=== PATIENT | male | born 1965 | race American Indian/Alaskan Native ===

== ENCOUNTER 2017-03-07 11:51 | Inpatient (IN) | payer BC ==
[2017-03-07 12:40] LABS: BASO # 0.02 K/mm3 (0.0-2.0); BASO % 0.3 % (0.0-3.0); EOS # 0.2 (0.0-0.7); EOS % 2.1 % (1.5-5.0); GRAN # 4.42 (1.4-6.5); GRAN % 60.4 % (50.0-68.0); HEMATOCRIT 33.1 % (42.0-52.0); LYMPH # 2.1 (1.2-3.4); LYMPH % 29.1 % (22.0-35.0); MEAN CELL VOLUME 78.4 fl (80.0-105.0); MEAN CORPUSCULAR HGB CONC 35.6 g/dl (31.0-37.0); MEAN PLATELET VOLUME 10.1 fl (7.0-11.0); MONO # 0.6 (0.1-0.6); MONO % 8.1 % (1.0-6.0); RED CELL DISTRIBUTION WIDTH 14.6 % (11.5-14.5); WHITE BLOOD COUNT 7.3 10^3/ul (4.5-11.0)
[2017-03-07 12:48] LABS: ALB/GLOB RATIO 1.1 (1.1-1.8); BILIRUBIN,TOTAL 0.7 mg/dL (0.2-1.3); CALCIUM 9.6 mg/dL (8.4-10.5); TOTAL PROTEIN 7.9 g/dL (5.8-8.3)
[2017-03-07 12:50] LABS: POTASSIUM 2.8 mmol/L (3.6-5.0)
[2017-03-07] MEDS ORDERED: Potassium Chloride 20 mEq ER Tab PO STA (12:57)
[2017-03-07 12:58] LABS: INR 0.99 (0.93-1.08); PARTIAL THROMBOPLASTIN TIME 38.2 Seconds (25.1-36.5)
[2017-03-07 12:59] LABS: TROPONIN I 0.03 ng/mL
[2017-03-07] MEDS ORDERED: Sodium Chloride 0.9% 1,000 ML IV STA (13:05)
--- NOTE | 2017-03-07 13:23 | ED PDOC ---
Arrival/HPI - General Chief Complaint: Abnormal Labs Time Seen by Provider: 03/07/17 12:07 Historian: Patient - History of Present Illness Narrative History of Present Illness (Text): 03/07/17 13:18 52yo morbidly obese male with PMhx significant for hypertension and Diabetes referred to ED for hypokalemia. Patient states his PMD did blood work yesterday and called him today with the result, referring him to the ED. He however denies chest pain, foal weakness, paresthesia, nausea, vomiting, abdominal pain , any other complaint. Past Medical History - Provider Review Nursing Documentation Reviewed: Yes - Infectious Disease Hx of Infectious Diseases: None - Cardiac Hx Hypertension: Yes - Endocrine/Metabolic Hx Diabetes Mellitus Type 2: Yes - Psychiatric Hx Substance Use: No - Surgical History Hx Orthopedic Surgery: Yes - Anesthesia Hx Anesthesia Reactions: No Family/Social History - Physician Review Nursing Documentation Reviewed: Yes Family/Social History: Unknown Family HX Smoking Status: Unknown If Ever Smoked Hx Alcohol Use: Yes Frequency of alcohol use: Socially Hx Substance Use: No Allergies/Home Meds Allergies/Adverse Reactions: Allergies No Known Allergies Allergy (Verified 03/07/17 15:23) Home Medications: Home Meds Medication Instructions Recorded Confirmed Atorvastatin [Lipitor] 40 mg PO DAILY 03/07/17 03/07/17 Azilsartan Med/Chlorthalidone 1 tab PO DAILY 03/07/17 03/07/17 [Edarbyclor 40 mg-25 mg] Calcitriol [Rocaltrol] 0 mcg PO DAILY 03/07/17 03/07/17 Doxazosin Mesylate 2 mg PO DAILY 03/07/17 03/07/17 Insulin Aspart Prot/Insuln Asp 60 unit SQ AMHS 03/07/17 03/07/17 [Novolog Mix 70-30 Vial] Insulin Aspart/Insulin Aspar 40 units SC ACD 03/07/17 03/07/17 [Novolog Mix 70/30 (70/30 units/ml)] NIFEdipine [Procardia] 60 mg PO BID 03/07/17 03/07/17 Review of Systems - Physician Review All systems were reviewed & negative as marked: Yes - Review of Systems Constitutional: Normal, Other (Hypokalemia) Eyes: Normal ENT: Normal Respiratory: Normal Cardiovascular: Normal Gastrointestinal: Normal Genitourinary Male: Normal Musculoskeletal: Normal Skin: Normal Neurological: Normal Endocrine: Normal Hemo/Lymphatic: Normal Psychiatric: Normal Physical Exam Vital Signs Reviewed: Yes Vital Signs Temp Pulse Resp BP Pulse Ox 03/07/17 14:42 83 19 139/80 95 03/07/17 13:23 84 18 147/84 95 03/07/17 12:02 99 F 98 H 18 131/84 95 Temperature: Afebrile Blood Pressure: Normal Pulse: Regular Respiratory Rate: Normal Appearance: Positive for: Well-Appearing, Non-Toxic, Comfortable, Other ( Morbidly obese) Pain Distress: None Mental Status: Positive for: Alert and Oriented X 3 - Systems Exam Head: Present: Atraumatic, Normocephalic Pupils: Present: PERRL Extroacular Muscles: Present: EOMI Conjunctiva: Present: Normal Mouth: Present: Moist Mucous Membranes Neck: Present: Normal Range of Motion Respiratory/Chest: Present: Clear to Auscultation, Good Air Exchange. No: Respiratory Distress, Accessory Muscle Use Cardiovascular: Present: Regular Rate and Rhythm, Normal S1, S2. No: Murmurs Abdomen: Present: Normal Bowel Sounds. No: Tenderness, Distention, Peritoneal Signs Back: Present: Normal Inspection Upper Extremity: Present: Normal Inspection. No: Cyanosis, Edema Lower Extremity: Present: Normal Inspection. No: Edema Neurological: Present: GCS=15, CN II-XII Intact, Speech Normal Skin: Present: Warm, Dry, Normal Color. No: Rashes Psychiatric: Present: Alert, Oriented x 3, Normal Insight, Normal Concentration Medical Decision Making ED Course and Treatment: 03/07/17 20:20 Pt appeared for stated history. He was comfortable in ED. His repeat lab show potassium of 2.8. His potassium was repeleted in ED. Elevated BUN/Cr was also noted. On discussing the case with Dr. Briceno, he notes knowledge of the elevated BUN/ Cr secondary to old labs. Level CK and LDH was however new. Source unknown at this time. Pt was admitted for rhabdomylosis. Case was DW Dr. lee. Pt admitted to his service. EKG NSR with Prolonged QT at 80bpm - Lab Interpretations Lab Results: 03/07/17 12:30 03/07/17 12:30 Lab Results 03/07/17 12:30: Sodium 143, Potassium 2.8 L*, Chloride 99, Carbon Dioxide 36 H, Anion Gap 11, BUN 45 H, Creatinine 2.4 H, Est GFR ( Amer) 34, Est GFR ( Non-Af Amer) 28, Random Glucose 220 H, Calcium 9.6, Total Bilirubin 0.7, AST 54 , ALT 39, Alkaline Phosphatase 100, Lactate Dehydrogenase 833 H, Total Creatine Kinase 1153 H, CK-MB (CK-2) 7.0 H, CK-MB (CK-2) % 0.6 L, Troponin I 0.03, Total Protein 7.9, Albumin 4.2, Globulin 3.8, Albumin/Globulin Ratio 1.1 03/07/17 12:30: PT 10.9, INR 0.99, APTT 38.2 H 03/07/17 12:30: WBC 7.3, RBC 4.22, Hgb 11.8 L, Hct 33.1 L, MCV 78.4 L, MCH 28.0 , MCHC 35.6, RDW 14.6 H, Plt Count 238, MPV 10.1, Gran % 60.4, Lymph % (Auto) 29.1, [place] % (Auto) 8.1 H, Eos % (Auto) 2.1, Baso % (Auto) 0.3, Gran # 4.42, Lymph # 2.1, [place] # 0.6, Eos # 0.2, Baso # 0.02 - Medication Orders Current Medication Orders: Atorvastatin Calcium (Lipitor) 40 mg PO HS [facility] Insulin Human Regular (Humulin R Med) 0 units SC ACHS [facility] PRN Reason: Protocol Nifedipine (Procardia Xl) 60 mg PO BID [facility] Last Admin: 03/07/17 17:49 Dose: 60 mg [facility] Pulse and Blood Pressure Document 03/07/17 17:49 RV (Rec: 03/07/17 17:49 RV [id number]) Pulse Pulse Rate (60-90) 87 Blood Pressure Blood Pressure (100/60-150/90) 130/71 Discontinued Medications Potassium Chloride (Potassium Chloride 20 Meq/100 Ml) 20 meq in 100 mls @ 50 mls/hr IVPB Q2H STA Stop: 03/07/17 14:58 Last Admin: 03/07/17 13:29 Dose: 50 mls/hr eMAR Start Stop Document 03/07/17 13:29 MR (Rec: 03/07/17 13:29 MR [id number]) Intravenous Solution Start Date 03/07/17 Start Time 13:29 End Date 03/07/17 End time 15:29 Total Infusion Time 120 Sodium Chloride (Sodium Chloride 0.9%) 1,000 mls @ 999 mls/hr IV .Q1H1M STA Stop: 03/07/17 14:05 Last Admin: 03/07/17 13:30 Dose: 999 mls/hr eMAR Start Stop Document 03/07/17 13:30 MR (Rec: 03/07/17 13:30 MR [id number]) Intravenous Solution Start Date 03/07/17 Start Time 13:30 End Date 03/07/17 End time 14:30 Total Infusion Time 60 Magnesium Sulfate 2 gm/ Sodium (Chloride) 104 mls @ 102 mls/hr IVPB ONCE ONE Stop: 03/07/17 16:52 Last Admin: 03/07/17 17:48 Dose: 102 mls/hr eMAR Start Stop Document 03/07/17 17:48 RV (Rec: 03/07/17 17:49 RV [id number]) Intravenous Solution Start Date 03/07/17 Start Time 17:49 End Date 03/07/17 End time 18:49 Total Infusion Time 60 Pneumococcal Polyvalent Vaccine (Pneumovax 23 Vaccine) 0.5 ml IM .ONCE ONE Stop: 03/07/17 16:52 Potassium Chloride (K-Dur 20 Meq Er Tab) 40 meq PO STAT STA Stop: 03/07/17 12:58 Last Admin: 03/07/17 13:29 Dose: 40 meq Disposition/Present on Arrival - Present on Arrival Any Indicators Present on Arrival: No History of DVT/PE: No History of Uncontrolled Diabetes: No Urinary Catheter: No History of Decub. Ulcer: No History Surgical Site Infection Following: None - Disposition Have Diagnosis and Disposition been Completed?: Yes Diagnosis: Hypokalemia, Rhabdomyolysis, Renal insufficiency Disposition: HOSPITALIZED Disposition Time: 13:30 Patient Problems: Current Active Problems Problem Status Onset Hypokalemia Acute Renal insufficiency Acute Rhabdomyolysis Acute Condition: FAIR
[2017-03-07] MEDS ORDERED: Magnesium Sulfate 2 GM in Sodium Chloride 0.9% 100 ML IVPB ONE (15:51)
[2017-03-07 16:51] VITALS: BMI 48.7
[2017-03-07] MEDS ORDERED: Pneumococcal 23-Valent Vaccine IM ONE (16:51)
[2017-03-07] MEDS ORDERED: Influenza Vaccine 60 mcg/0.5 mL SYR (4YR UP) IM ONE (16:51)
[2017-03-07] MEDS: Insulin Human NPH/Reg 70/30 Vial(3 ml) SC SCH (17:48)
[2017-03-07] MEDS: NIFEdipine 60 mg ER Tab PO SCH (17:49)
[2017-03-07 18:15] LABS: MAGNESIUM 1.9 mg/dL (1.7-2.2)
[2017-03-07 18:28] LABS: TROPONIN I 0.03 ng/mL
--- NOTE | 2017-03-07 19:08 | US ---
PROCEDURE: Ultrasound of the Kidneys HISTORY: CKD COMPARISON: None available. TECHNIQUE: Sonogram of the kidneys. FINDINGS: RIGHT KIDNEY: Measures: 10.0 cm. Normal in size, contour and echogenicity. No stone, solid mass lesion or hydronephrosis visualized. LEFT KIDNEY: Measures: 11.3 cm. Normal in size, contour and echogenicity. No calculus or hydronephrosis. Upper pole cortical cyst, 2.2 cm. No solid mass. OTHER FINDINGS: None. IMPRESSION: 2.2 cm left upper pole simple cortical cyst. Otherwise unremarkable examination.
[2017-03-07] MEDS: Insulin Reg-MEDIUM-Coverage SC SCH (21:51)
[2017-03-08 02:10] LABS: TROPONIN I 0.02 ng/mL
[2017-03-08 08:23] LABS: HEMATOCRIT 33.5 % (42.0-52.0); MEAN CELL VOLUME 78.8 fl (80.0-105.0); MEAN CORPUSCULAR HEMOGLOBIN 27.3 pg (25.0-35.0); MEAN CORPUSCULAR HGB CONC 34.6 g/dl (31.0-37.0); MEAN PLATELET VOLUME 9.9 fl (7.0-11.0); RED CELL DISTRIBUTION WIDTH 14.7 % (11.5-14.5); WHITE BLOOD COUNT 6.8 10^3/ul (4.5-11.0)
[2017-03-08 08:31] LABS: ALB/GLOB RATIO 1.1 (1.1-1.8); BILIRUBIN,TOTAL 0.7 mg/dL (0.2-1.3); CALCIUM 9.3 mg/dL (8.4-10.5); MAGNESIUM 2.1 mg/dL (1.7-2.2); PHOSPHOROUS 3.6 mg/dL (2.5-4.5); POTASSIUM 3.2 mmol/L (3.6-5.0); TOTAL PROTEIN 7.9 g/dL (5.8-8.3)
[2017-03-08 08:42] LABS: TROPONIN I 0.02 ng/mL
--- NOTE | 2017-03-08 09:08 | CARD ---
APPROVED REPORT EKG Measurement Heart [id number] MA [id number] [id number] <Conclusion> Normal sinus rhythm NSSTW changes Prolonged QT
[2017-03-08] MEDS: NIFEdipine 60 mg ER Tab PO SCH ×2 (09:45→18:17)
[2017-03-08] MEDS: Insulin Reg-MEDIUM-Coverage SC SCH ×4 (09:46→21:32)
[2017-03-08] MEDS: Insulin Human NPH/Reg 70/30 Vial(3 ml) SC SCH (16:20)
[2017-03-08] MEDS: Silver Sulfadiazine 1% Cream (25 gm) TP SCH (18:17)
--- NOTE | 2017-03-08 23:23 | HP ---
HISTORY OF PRESENT ILLNESS: Mr. De Dios is a 52-year-old male who was sent to the hospital by the PMD when on a routine blood work he was found to have a low potassium. He was complaining of extreme fatigue. 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 He sort out mails from the belt. He also has history of leg cramps before. He was found to be hypokalemic, acute renal failure and rhabdomyolysis with elevated CK and elevated creatinine. Denies any nausea or vomiting. He has history of hypertension. Blood pressure controlled with current medication. He also has a history of diabetes mellitus controlled. PAST MEDICAL HISTORY: Diabetes mellitus and hypertension. FAMILY HISTORY: Noncontributory. PAST SURGICAL HISTORY: None. ALLERGIES: NO KNOWN DRUG ALLERGIES. PERSONAL HISTORY: Nonsmoker. No history of alcohol abuse. SOCIAL HISTORY: Lives at home. HOME MEDICATIONS: Lipitor 40 mg daily, chlorthalidone-azilsartan one tablet daily, Rocaltrol , insulin 70/30, 60 units a.m. and at bedtime, nifedipine 10 mg b.i.d. REVIEW OF SYSTEMS: As per HPI. The rest of 12-point review of systems reviewed negative. PHYSICAL EXAMINATION: GENERAL: Comfortable in bed, in no acute distress. VITAL SIGNS: Temperature 98.7, heart rate is 80 per minute, respiratory rate 16 per minute, blood pressure 130/84, pulse ox is 95% on room air. HEENT: Normal. NECK: Supple. No lymphadenopathy. CHEST: Air entry present and equal bilateral. No added sounds. CARDIOVASCULAR: S1 and S2 normal. No murmurs and no gallops. ABDOMEN: Obese, nontender. EXTREMITIES: Bilateral minimal edema present. SKIN: Intact, dry, warm. TRAVEL NURSE: Alert and oriented x3. No focal sensory or motor deficit. LABORATORY DATA: White count 7.3, hemoglobin 11.8, hematocrit 33.1, platelets 231. Sodium 143, potassium 2.8, BUN 45, creatinine 2.4, glucose 220. Creatine kinase 1153, CK-MB 7. PTT 38.2. ASSESSMENT: 1. Rhabdomyolysis. 2. Hypokalemia. 3. Hypertension. 4. Diabetes mellitus type 2. 5. Microcytic anemia. PLAN: He will be admitted to the hospital, IV fluids, normal saline at 100 mL an hour. We will replace potassium 10 mEq riders. Continue regular sliding scale insulin fingerstick q. a.c. and at bedtime, nifedipine 60 mg p.o. b.i.d., Lipitor 40 mg daily, silver sulfadiazine topical application on the leg for skin breakdown. We will repeat the labs CBC, BMP. Iron studies ruled out iron-deficiency anemia. He might have sickle cell trait although no family history of that. Encouraged ambulation. Deborah Earl MD [facility]
[2017-03-09 08:00] LABS: BASO # 0.02 K/mm3 (0.0-2.0); BASO % 0.3 % (0.0-3.0); EOS # 0.1 (0.0-0.7); EOS % 1.7 % (1.5-5.0); GRAN # 4.55 (1.4-6.5); GRAN % 63.5 % (50.0-68.0); LYMPH # 1.8 (1.2-3.4); LYMPH % 25.7 % (22.0-35.0); MEAN CELL VOLUME 78.2 fl (80.0-105.0); MEAN CORPUSCULAR HGB CONC 35.9 g/dl (31.0-37.0); MONO # 0.6 (0.1-0.6); MONO % 8.8 % (1.0-6.0); RED CELL DISTRIBUTION WIDTH 14.6 % (11.5-14.5); WHITE BLOOD COUNT 7.2 10^3/ul (4.5-11.0)
[2017-03-09] MEDS: Insulin Reg-MEDIUM-Coverage SC SCH ×3 (08:05→17:29)
[2017-03-09 08:24] LABS: ALB/GLOB RATIO 1.1 (1.1-1.8); BILIRUBIN,TOTAL 0.7 mg/dL (0.2-1.3); CALCIUM 9.5 mg/dL (8.4-10.5); TOTAL PROTEIN 7.5 g/dL (5.8-8.3)
[2017-03-09 08:30] LABS: IRON 34 ug/dL (45-180)
[2017-03-09] MEDS: NIFEdipine 60 mg ER Tab PO SCH ×3 (08:57→17:33)
--- NOTE | 2017-03-09 09:13 | CP.PCM.PN ---
Subjective - Date & Time of Evaluation Date of Evaluation: 03/09/17 Time of Evaluation: 09:06 - Subjective Subjective: House Physician Note Called by nursing due to elevated BP this AM, reported manual BP 170/100 with patient currently complaining of headache. Went to bedside to examine patient, who was awake, alert, responsive, and following all commands. 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 Currently, headache reported surrounding superior- lateral portion of left orbit. At it's worst, patient reports circumferential distribution of pain around left orbit, but now currently only in superior- lateral portion. Denies any changes in vision, tinnitus, room-spinning, lightheadedness, nausea, emesis. Objective - Vital Signs/Intake and Output Vital Signs (last 24 hours): Temp Pulse Resp BP Pulse Ox 98.5 F 87 20 170/100 H 97 03/08/17 20:00 03/09/17 08:57 03/08/17 20:00 03/09/17 08:57 03/08/17 20:00 Intake and Output: 03/09/17 03/09/17 06:59 18:59 Intake Total 300 Output Total 0 Balance 300 - Medications Medications: Current Medications Atorvastatin Calcium (Lipitor) 40 mg PO HS [facility] Last Admin: 03/08/17 21:32 Dose: 40 mg Insulin Human Regular (Humulin R Med) 0 units SC ACHS [facility] PRN Reason: Protocol Last Admin: 03/09/17 08:05 Dose: Not Given Nifedipine (Procardia Xl) 60 mg PO BID [facility] Last Admin: 03/09/17 08:57 Dose: 60 mg Silver Sulfadiazine (Silvadene 1% 25 Gm) 0 gm TP BID [facility] Last Admin: 03/08/17 18:17 Dose: 25 gm - Labs Labs: 03/09/17 07:00 03/09/17 07:00 PT 10.9 SECONDS (9.4-12.5) 03/07/17 12:30 INR 0.99 (0.93-1.08) 03/07/17 12:30 APTT 38.2 Seconds (25.1-36.5) H 03/07/17 12:30 - Additional Findings Additional findings: Gen: awake and alert, following all commands, No acute distress Head: NC/AT, no gross sided-deficit Eyes: Normal appearance, EOMI, tracking staff within room appropriately ENT: speech normal, no slurring, no facial drop or asymmetry Pulm: No tachypnea, no keny cyanosis Neuro: moving all extremities spontaneous, no motor sided-deficit noted, no facial droop or slurred speech Psych: AAOx3, normal mood and affect Most recent labs and vitals reviewed Assessment and Plan - Assessment and Plan (Free Text) Plan: Elevated BP 2/2 headache vs hypertensive urgency Possibly elevated BP 2/2 untreated ROLO (not currently on CPAP/BiPAP at night) Instructed Nurse to give 10am dose of procardia now, 650mg PO Tylenol 1x for headache, reassess in 1 hour If BP remains elevated, can consider adding additional antihypertensive medications (Hydralazine or Imdur) -pt reports on Edarbi at home in addition to procardia, non-formulary here PMD (Dr. Freeman) paged, awaiting callback to update.
[2017-03-09 10:02] LABS: CHOLESTEROL 117 mg/dL (130-200)
[2017-03-09] MEDS: Silver Sulfadiazine 1% Cream (25 gm) TP SCH ×2 (11:19→17:34)
[2017-03-09 13:08] LABS: URINE BILIRUBIN NEGATIVE (NEGATIVE); URINE BLOOD TRACE-INTACT (NEGATIVE); URINE GLUCOSE (UA) NEGATIVE (NEGATIVE); URINE KETONE NEGATIVE (NEGATIVE); URINE LEUKOCYTE ESTERASE NEGATIVE Leu/uL (NEGATIVE); URINE PROTEIN NEGATIVE mg/dL (<30 mg/dL); URINE UROBILINOGEN 0.2 E.U./dL (<1 E.U./dL)
[2017-03-09 13:22] LABS: URINE APPEARANCE SL CLOUDY (CLEAR); URINE COLOR YELLOW (YELLOW)
[2017-03-09 13:41] LABS: URINE RBC 0 - 2 /hpf (0-2)
[2017-03-09 13:42] LABS: URINE WBC NEGATIVE /hpf (0-6)
[2017-03-09 13:43] LABS: URINE BACTERIA FEW (NEG)
[2017-03-09 16:55] VITALS: BP 141/89; RESP 18; TEMP 99.3; O2SAT 96
[2017-03-09] MEDS: Insulin Human NPH/Reg 70/30 Vial(3 ml) SC SCH (17:34)
[2017-03-09 18:13] VITALS: PULSE 89
--- NOTE | 2017-03-09 23:45 | DS ---
DATE OF DISCHARGE: 03/09/2017 DISCHARGE DIAGNOSES: 1. Rhabdomyolysis. 2. Acute renal insufficiency. 3. Diabetes mellitus type 2. 4. Microcytic anemia. 5. Hypertension. 6. Superficial ulceration, left leg. HOSPITAL COURSE: The patient was admitted with rhabdomyolysis and acute renal failure. He was treated with IV fluids. He was also hypokalemic, parenteral IV potassium was replaced. Renal functions improved. Potassium improved. Left leg ulceration was cleaned and draped. He is being discharged in stable condition. Incidental finding was microcytosis on CBC. Iron studies showed severe anemia. He never had colonoscopy before. PHYSICAL EXAMINATION: GENERAL: At discharge, comfortable in bed, in no acute distress. Morbidly obese. VITAL SIGNS: Temperature 98.8, heart rate is 70 per minute, respiratory rate is 15 per minute, blood pressure 120/80 and pulse ox is 98% on room air. HEENT: Normal. CHEST: Air entry present equal bilateral, no added sound. CARDIOVASCULAR: S1 and S2 normal. No murmur, no gallop. ABDOMEN: Obese. Hepatosplenomegaly. EXTREMITIES: Left extremity, superficial ulceration present. DAIRY EQUIPMENT REPAIRER: Alert and oriented x3. No focal sensory or motor deficit. SPINE: Nontender. DISCHARGE MEDICATIONS: K-Dur 20 mEq p.o. b.i.d., lipitor 40 mg daily, silver sulfadiazine topical application, left leg,and Procardia 60 mg p.o. b.i.d.. Resume home medications. CONDITION ON DISCHARGE: Stable. DISPOSITION: Discharge home. DISCHARGE FOLLOWUP: 1. Follow up with Dr. Ricardo in 1 week,podiatry. 2. Follow up with Dr. Briceno in one week. 3. Follow up with Dr. Earl for microcytic anemia. Discussed with the staff nurse. Discussed with the patient. All prescriptions given. Time spent in preparing discharge and coordinating care 55 minutes. Deborah Earl MD
== END 2017-03-09 18:20 | disposition home or self-care (01) | DRG 683 ==
LOC: ED 11:51 → ERH 13:32 → 3RSO 16:05
PROVIDERS: ADMIT Internal Medicine Nephrology; ATTEND Internal Medicine Nephrology
DX: N17.9 Acute kidney failure, unspecified (principal); M62.82 Rhabdomyolysis; E11.622 Type 2 diabetes mellitus with other skin ulcer; L97.929 Non-pressure chronic ulcer of unspecified part of left lower leg with unspecified severity; E66.01 Morbid (severe) obesity due to excess calories; Z68.42 Body mass index [BMI] 45.0-49.9, adult; I10 Essential (primary) hypertension; E87.6 Hypokalemia; D50.9 Iron deficiency anemia, unspecified

== ENCOUNTER 2017-03-24 15:01 | Emergency (ER) | payer BC ==
[2017-03-24 15:02] VITALS: BMI 48.7
[2017-03-24 15:26] VITALS: TEMP 98.8
--- NOTE | 2017-03-24 16:06 | ED PDOC ---
Arrival/HPI - General Chief Complaint: Abnormal Labs Time Seen by Provider: 03/24/17 15:06 Historian: Patient - History of Present Illness Narrative History of Present Illness (Text): 03/24/17 16:02 52yo male with PMHx of hypertension and Diabetes referred to ED by his PMD for hypokalemia. Patient was seen in ED 2weeks ago for same complaint. Notes that he saw his PMD on Friday for blood work and was called today and referred to ED for low potassium. He denies any somatic complaint. Denies chest pain, SOB, focal weakness, dizziness, and chest pain. 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) - Renal Hx Renal Disorder: No - Endocrine/Metabolic Hx Diabetes Mellitus Type 2: Yes - Hematological/Oncological Hx Blood Disorders: No - Integumentary Hx Dermatological Disorder: Yes Other/Comment: LEFT LEG CHRONIC LEG WOUND - Musculoskeletal/Rheumatological Hx Musculoskeletal Disorders: Yes (LEFT ANKLE SX) Hx Falls: No - Gastrointestinal Hx Gastrointestinal Disorders: No - Genitourinary/Gynecological Hx Genitourinary Disorders: No - Psychiatric Hx Psychophysiologic Disorder: No Hx Substance Use: No - Surgical History Hx Orthopedic Surgery: Yes - Anesthesia Hx Anesthesia Reactions: No Family/Social History - Physician Review Nursing Documentation Reviewed: Yes Family/Social History: Unknown Family HX Smoking Status: Unknown If Ever Smoked Hx Alcohol Use: Yes Hx Substance Use: No Allergies/Home Meds Allergies/Adverse Reactions: Allergies No Known Allergies Allergy (Verified 03/24/17 15:04) Home Medications: Home Meds Medication Instructions Recorded Confirmed Atorvastatin [Lipitor] 40 mg PO DAILY 03/07/17 03/24/17 Azilsartan Med/Chlorthalidone 1 tab PO DAILY 03/07/17 03/24/17 [Edarbyclor 40-25 mg Tablet] Calcitriol [Rocaltrol] 0.5 mcg PO DAILY 03/07/17 03/24/17 Doxazosin Mesylate 2 mg PO DAILY 03/07/17 03/24/17 Insulin Aspart Prot/Insuln Asp 60 unit SQ AMHS 03/07/17 03/24/17 [Novolog Mix 70-30 Vial] Insulin Aspart/Insulin Aspar 40 units SC ACD 03/07/17 03/24/17 [Novolog Mix 70/30 (70/30 units/ml)] NIFEdipine [Procardia] 60 mg PO BID 03/07/17 03/24/17 Review of Systems - Physician Review All systems were reviewed & negative as marked: Yes - Review of Systems Constitutional: Normal Eyes: Normal ENT: Normal Respiratory: Normal Cardiovascular: Normal Gastrointestinal: Normal Genitourinary Male: Normal Musculoskeletal: Normal Skin: Normal Neurological: Normal Endocrine: Normal Hemo/Lymphatic: Normal Psychiatric: Normal Physical Exam Vital Signs Reviewed: Yes Vital Signs Temp Pulse Resp BP Pulse Ox 03/24/17 15:21 98.8 F 88 18 166/82 H 99 03/24/17 15:07 98.9 F 99 H 16 177/82 H 96 Temperature: Afebrile Blood Pressure: Normal Pulse: Regular Respiratory Rate: Normal Appearance: Positive for: Well-Appearing, Non-Toxic, Comfortable Pain Distress: None Mental Status: Positive for: Alert and Oriented X 3 - Systems Exam Head: Present: Atraumatic, Normocephalic Pupils: Present: PERRL Extroacular Muscles: Present: EOMI Conjunctiva: Present: Normal Mouth: Present: Moist Mucous Membranes Neck: Present: Normal Range of Motion Respiratory/Chest: Present: Clear to Auscultation, Good Air Exchange. No: Respiratory Distress, Accessory Muscle Use Cardiovascular: Present: Regular Rate and Rhythm, Normal S1, S2. No: Murmurs Abdomen: Present: Normal Bowel Sounds. No: Tenderness, Distention, Peritoneal Signs Back: Present: Normal Inspection Upper Extremity: Present: Normal Inspection. No: Cyanosis, Edema Lower Extremity: Present: Normal Inspection. No: Edema Neurological: Present: GCS=15, CN II-XII Intact, Speech Normal Skin: Present: Warm, Dry, Normal Color. No: Rashes Psychiatric: Present: Alert, Oriented x 3, Normal Insight, Normal Concentration Medical Decision Making ED Course and Treatment: 03/24/17 17:11 PT in ED for stated history. He denied any somatic complaint in Ed. He was comfortable and hemodynamically stable. His potassium was 3.3 in ED. this has trended up from where it was two weeks ago. Pt notes that he is currently on potassium supplement and has been eating banana. His hypokalemia is likely from his diuretic. He states he was on spinolactone, which was stopped and replaced with a different diuretic. His Ck is 600 which have also trended down from what it was two weeks ago. Cr is 2.1 close to what it was before. Potassium was repleted in ED. Case was DW Dr. Guerra. He states pt potassium was 2.8 on Friday. Recommends that pt be DC home to f/u with him. He is already aware of the elevated Cr. and CK. All result was dw the pt. He was advised to continue with his potassium supplement and f/u with Dr. guerra's office. TRT ED for any new or worsening symptoms. - Lab Interpretations Lab Results: 03/24/17 16:00 03/24/17 16:00 Lab Results 03/24/17 16:00: Sodium 144, Potassium 3.3 L, Chloride 99, Carbon Dioxide 39 H, Anion Gap 9 L, BUN 33 H, Creatinine 2.1 H, Est GFR ( Amer) 40, Est GFR ( Non-Af Amer) 33, Random Glucose 128 H, Calcium 9.4, Total Bilirubin 0.5, AST 39 , ALT 30, Alkaline Phosphatase 81, Lactate Dehydrogenase 674, Total Creatine Kinase 600 H, CK-MB (CK-2) 5.1 H, CK-MB (CK-2) % 0.9 L, Troponin I 0.03 D, Total Protein 7.7, Albumin 3.9, Globulin 3.9, Albumin/Globulin Ratio 1.0 L 03/24/17 16:00: PT 11.6, INR 1.06, APTT 38.7 H 03/24/17 16:00: WBC 7.0, RBC 4.15, Hgb 11.5 L, Hct 32.9 L, MCV 79.3 L, MCH 27.7 , MCHC 35.0, RDW 14.9 H, Plt Count 232, MPV 10.0, Gran % 66.5, Lymph % (Auto) 23.9, [place] % (Auto) 8.0 H, Eos % (Auto) 1.3 L, Baso % (Auto) 0.3, Gran # 4.68, Lymph # 1.7, [place] # 0.6, Eos # 0.1, Baso # 0.02 - Medication Orders Current Medication Orders: Discontinued Medications Potassium Chloride (Potassium Chloride 20 Meq/100 Ml) 20 meq in 100 mls @ 50 mls/hr IVPB ONCE ONE Stop: 03/24/17 18:36 Last Admin: 03/24/17 17:29 Dose: 50 mls/hr eMAR Start Stop Document 03/24/17 17:29 HI (Rec: 03/24/17 17:29 HI [id number]) Intravenous Solution Start Date 03/24/17 Start Time 17:29 Disposition/Present on Arrival - Present on Arrival Any Indicators Present on Arrival: No History of DVT/PE: No History of Uncontrolled Diabetes: No Urinary Catheter: No History of Decub. Ulcer: No History Surgical Site Infection Following: None - Disposition Have Diagnosis and Disposition been Completed?: Yes Diagnosis: Hypokalemia, Renal insufficiency Disposition: HOME/ ROUTINE Disposition Time: 19:00 Patient Plan: Discharge Patient Problems: Current Active Problems Problem Status Onset Hypokalemia Acute Renal insufficiency Acute Condition: STABLE Discharge Instructions (ExitCare): Hypokalemia (ED) Additional Instructions: Follow up with your doctor Return to ED for any new or worsening symptoms Referrals: Bebeto Guerra MD [Primary Care Provider] - Follow up with primary Forms: [employer] (Mauritian)
[2017-03-24 16:11] LABS: BASO # 0.02 K/mm3 (0.0-2.0); BASO % 0.3 % (0.0-3.0); EOS # 0.1 (0.0-0.7); EOS % 1.3 % (1.5-5.0); GRAN # 4.68 (1.4-6.5); GRAN % 66.5 % (50.0-68.0); HEMATOCRIT 32.9 % (42.0-52.0); LYMPH # 1.7 (1.2-3.4); LYMPH % 23.9 % (22.0-35.0); MEAN CELL VOLUME 79.3 fl (80.0-105.0); MEAN CORPUSCULAR HEMOGLOBIN 27.7 pg (25.0-35.0); MONO # 0.6 (0.1-0.6); RED CELL DISTRIBUTION WIDTH 14.9 % (11.5-14.5)
[2017-03-24 16:22] LABS: INR 1.06 (0.93-1.08); PARTIAL THROMBOPLASTIN TIME 38.7 Seconds (25.1-36.5)
[2017-03-24 16:28] LABS: BILIRUBIN,TOTAL 0.5 mg/dL (0.2-1.3); CALCIUM 9.4 mg/dL (8.4-10.5); POTASSIUM 3.3 mmol/L (3.6-5.0); TOTAL PROTEIN 7.7 g/dL (5.8-8.3)
[2017-03-24 16:39] LABS: TROPONIN I 0.03 ng/mL
[2017-03-24 19:36] VITALS: BP 159/86; PULSE 81; RESP 16; O2SAT 100
--- NOTE | 2017-03-25 22:25 | CARD ---
APPROVED REPORT EKG Measurement Heart [id number] <Conclusion> Normal sinus rhythm Prolonged QT Abnormal ECG
== END 2017-03-24 19:35 | disposition home or self-care (01) ==
LOC: ED 15:01
DX: E87.6 Hypokalemia (principal); N28.9 Disorder of kidney and ureter, unspecified; I10 Essential (primary) hypertension; E11.9 Type 2 diabetes mellitus without complications; Z79.4 Long term (current) use of insulin
CPT/HCPCS: 80053; 82550; 82553; 83615; 84484; 85025; 85610; 85730; 93005; 99282; J3480

== ENCOUNTER 2017-08-07 13:27 | Inpatient (IN) | payer BC ==
--- NOTE | 2017-08-07 14:26 | ED PDOC ---
Arrival/HPI - General Historian: Patient - General Chief Complaint: Lower Extremity Problem/Injury Time Seen by Provider: 08/07/17 13:41 - History of Present Illness Narrative History of Present Illness (Text): 08/07/17 14:22 Patient is a 52M with a PMH of DM and HTN who comes to the ED sent by his PMD for a lower extremity wound. He has had this wound for years and it was previous healed. He had previously been receiving wound care from Dr. Wills. As of 2 days ago he experienced an episode of fever and chills but those have since resolved. He denies any chest pain or sob. No nausea, vomiting or diarrhea. He keeps the leg wrapped with compression stockings daily. (Bird Lucio) Past Medical History - Infectious Disease Hx of Infectious Diseases: None - Cardiac Hx Hypertension: Yes - Pulmonary Hx Respiratory Disorders: Yes Hx Bronchitis: Yes - Neurological Hx Neurological Disorder: No - HEENT Hx HEENT Disorder: Yes (LEFT EYE CORNEAL TRANSPLANT) - Renal Hx Renal Disorder: No - Endocrine/Metabolic Hx Diabetes Mellitus Type 2: Yes - Hematological/Oncological Hx Blood Disorders: No - Integumentary Hx Dermatological Disorder: Yes Other/Comment: LEFT LEG CHRONIC LEG WOUND - Musculoskeletal/Rheumatological Hx Musculoskeletal Disorders: Yes (LEFT ANKLE SX) Hx Falls: No - Gastrointestinal Hx Gastrointestinal Disorders: No - Genitourinary/Gynecological Hx Genitourinary Disorders: No - Psychiatric Hx Psychophysiologic Disorder: No Hx Substance Use: No - Surgical History Hx Orthopedic Surgery: Yes - Anesthesia Hx Anesthesia Reactions: No Family/Social History Family/Social History: Unknown Family HX Smoking Status: Unknown If Ever Smoked Hx Alcohol Use: Yes Hx Substance Use: No Allergies/Home Meds Allergies/Adverse Reactions: Allergies No Known Allergies Allergy (Verified 08/07/17 13:43) Home Medications: Home Meds Medication Instructions Recorded Confirmed Azilsartan Med/Chlorthalidone 1 tab PO DAILY 03/07/17 08/07/17 [Edarbyclor 40-25 mg Tablet] Calcitriol [Rocaltrol] 0.5 mcg PO DAILY 03/07/17 08/07/17 Doxazosin Mesylate 2 mg PO DAILY 03/07/17 08/07/17 Insulin Aspart Prot/Insuln Asp 60 unit SQ AMHS 03/07/17 08/07/17 [Novolog Mix 70-30 Vial] Insulin Aspart/Insulin Aspar 40 units SC ACD 03/07/17 08/07/17 [Novolog Mix 70/30 (70/30 units/ml)] NIFEdipine [Procardia] 60 mg PO TID 03/07/17 08/07/17 Iron,Carb/Vit C/Vit B12/Folic 1 tab PO DAILY 08/07/17 08/07/17 [Iron 100 Plus 250 mg-25 Mcg-1 mg-100 mg] amLODIPine [Norvasc] 5 mg PO DAILY 08/07/17 08/07/17 Physical Exam Temperature: Afebrile Blood Pressure: Hypertensive Pulse: Regular Respiratory Rate: Normal Appearance: Positive for: Well-Appearing, Non-Toxic, Comfortable Pain Distress: None Mental Status: Positive for: Alert and Oriented X 3 - Systems Exam Head: Present: Atraumatic, Normocephalic Pupils: Present: PERRL Extroacular Muscles: Present: EOMI Conjunctiva: Present: Normal Mouth: Present: Moist Mucous Membranes Neck: Present: Normal Range of Motion Respiratory/Chest: Present: Clear to Auscultation, Good Air Exchange. No: Respiratory Distress, Accessory Muscle Use Cardiovascular: Present: Regular Rate and Rhythm, Normal S1, S2. No: Murmurs Abdomen: Present: Normal Bowel Sounds. No: Tenderness, Distention, Peritoneal Signs Upper Extremity: Present: Normal Inspection. No: Cyanosis, Edema Lower Extremity: Present: Normal Inspection. No: Edema Neurological: Present: GCS=15. No: CN II-XII Intact, Speech Normal Skin: Present: Warm, Dry, Normal Color, Other (wound on the Left lower extremity on the distal vásquez. measuring about [id number]. one small area of necrotic skin with increased warmth surrounding the tissue. ). No: Rashes Vital Signs Temp Pulse Resp BP Pulse Ox 08/07/17 17:12 79 18 158/89 H 97 08/07/17 15:27 86 18 168/94 H 97 08/07/17 13:43 98.3 F 90 18 174/102 H 97 Medical Decision Making ED Course and Treatment: 08/07/17 14:42 52M hx of DM with left lower extremity wound. Episode of fever and chills - cbc, cmp, mag, pt, ptt, VBG - wound culture, blood culture - surgery consult 08/07/17 15:18 Surgery states no intervention needed at this time, continue local wound care and compressive stockings Labs unremarkable, no lactate, no white count, chemistry unremarkable Spoke with primary, Ok with admitting patient. (Bird Lucio) 08/08/17 08:56 Patient seen and evaluated with medical associate. Patient is diabetic, noted to have nonhealing wound to leg. Currently afebrile, not septic. IV antibiotics initiated. Surgery consulted. Will admit to DR. Freeman, covering for PMD. Will admit to monitor blood sugar, wound, abx. (Don Moore) - Lab Interpretations Microbiology Results: Microbiology Results 08/07/17 14:30 Leg - Left Gram Stain - Final Lab Results: 08/07/17 14:30 08/07/17 14:30 Lab Results 08/07/17 14:30: PT 12.0, INR 1.05, APTT 37.3 H 08/07/17 14:30: Sodium 140, Chloride 101, Potassium 3.4 L, Carbon Dioxide 31, Anion Gap 12, BUN 24 H, Creatinine 1.6 H, Est GFR ( Amer) 55, Est GFR ( Non-Af Amer) 45, Random Glucose 168 H, Calcium 9.6, Magnesium 1.7, Total Bilirubin 0.5, AST 33, ALT 31, Alkaline Phosphatase 82, Total Protein 7.6, Albumin 3.8, Globulin 3.8, Albumin/Globulin Ratio 1.0 L 08/07/17 14:30: WBC 6.3, RBC 4.50, Hgb 12.7 L, Hct 35.2 L, MCV 78.2 L, MCH 28.2 , MCHC 36.1, RDW 15.2 H, Plt Count 238, MPV 10.1, Gran % 61.9, Lymph % (Auto) 26.1, [place] % (Auto) 10.4 H, Eos % (Auto) 1.4 L, Baso % (Auto) 0.2, Gran # 3.87, Lymph # (Auto) 1.6, [place] # (Auto) 0.7 H, Eos # (Auto) 0.1, Baso # (Auto) 0.01 08/07/17 14:30: pO2 40, VBG pH 7.35, VBG pCO2 61.0 H, VBG HCO3 33.7 H, VBG Total CO2 35.6 H, VBG O2 Sat (Calc) 74.8 H, VBG Base Excess 6.1 H, VBG Potassium 3.3 L, Sodium 140.0, Chloride 103.0, Glucose 168 H, Lactate 1.0, FiO2 21.0, Venous Blood Potassium 3.3 L - RAD Interpretation Radiology Orders: 08/07/17 15:25 CHEST PORTABLE [RAD] Stat - Medication Orders Current Medication Orders: Amlodipine Besylate (Norvasc) 5 mg PO DAILY [facility] Last Admin: 08/08/17 06:42 Dose: 5 mg MAR Pulse and Blood Pressure Document 08/08/17 06:42 PCO (Rec: 08/08/17 06:43 PCO [id number]) Pulse Pulse Rate (60-90 beats/min) 87 Blood Pressure Blood Pressure (100/60-150/90 mm Hg) 166/97 Heparin Sodium (Porcine) (Heparin) 5,000 units SC Q8 [facility] PRN Reason: Protocol Last Admin: 08/08/17 06:13 Dose: 5,000 units Subcutaneous Administrations Document 08/08/17 06:13 PCO (Rec: 08/08/17 06:13 PCO [id number]) Injection Site MAR Injection Site Right Arm Charges for Administration # of Subcutaneous Administrations 1 Meropenem (Merrem Iv 1 Gm Premix) 50 mls @ 100 mls/hr IVPB Q12 [facility] PRN Reason: Protocol Stop: 08/16/17 22:01 Last Admin: 08/07/17 21:18 Dose: 100 mls/hr eMAR Start Stop Document 08/07/17 21:18 PCO (Rec: 08/07/17 21:19 PCO [id number]) Intravenous Solution Start Date 08/07/17 Start Time 21:18 End Date 08/07/17 End time 21:50 Total Infusion Time 32 Linezolid (Zyvox 600mg/300ml D5w) 600 mg in 300 mls @ 200 mls/hr IVPB Q12 [facility] PRN Reason: Protocol Stop: 08/16/17 22:01 Last Admin: 08/07/17 21:20 Dose: 200 mls/hr eMAR Start Stop Document 08/07/17 21:20 PCO (Rec: 08/07/17 21:21 PCO [id number]) Intravenous Solution Start Date 08/07/17 Start Time 22:00 End Date 08/07/17 End time 23:35 Total Infusion Time 95 Insulin Human Regular (Humulin R High) 0 units SC ACHS [facility] PRN Reason: Protocol Last Admin: 08/08/17 07:54 Dose: Not Given Non-Admin Reason: Blood Sugar Parameter MAR Blood Glucose Document 08/08/17 07:54 AJ (Rec: 08/08/17 07:54 AJ [id number]) Blood Glucose Finger Stick Blood Glucose (70-120) 72 Insulin Lispro Protam/Lispro Human (Humalog Mix 75/25) 30 units SC AMHS [facility] Nifedipine (Procardia) 60 mg PO TID [facility] Non-Formulary Medication (Azilsartan Med/Chlorthalidone [Edarbyclor 40-25 Mg Tablet]) 1 tab PO DAILY [facility] Non-Formulary Medication (Doxazosin Mesylate [Doxazosin Mesylate]) 2 mg PO DAILY [facility] Non-Formulary Medication (Calcitriol [Rocaltrol]) 0.5 mcg PO DAILY [facility] Discontinued Medications Clonidine HCl (Catapres) 0.1 mg PO STAT STA Stop: 08/07/17 18:36 Last Admin: 08/07/17 18:50 Dose: 0.1 mg [facility] Pulse and Blood Pressure Document 08/07/17 18:50 SD (Rec: 08/07/17 18:50 SD [facility] [id number]) Pulse Pulse Rate (60-90 beats/min) 92 Blood Pressure Blood Pressure (100/60-150/90 mm Hg) 200/99 Ceftriaxone Sodium (Rocephin 1 Gram Ivpb) 1 gm in 100 mls @ 200 mls/hr IVPB ONCE STA PRN Reason: Protocol Stop: 08/07/17 15:53 Last Admin: 08/07/17 16:05 Dose: 200 mls/hr eMAR Start Stop Document 08/07/17 16:05 EQ (Rec: 08/07/17 16:05 EQ [id number]) Intravenous Solution Start Date 08/07/17 Start Time 16:05 Insulin Lispro Protam/Lispro Human (Humalog Mix 75/25) 60 units SC AMHS [facility] Last Admin: 08/07/17 22:59 Dose: 60 units MAR Blood Glucose Document 08/07/17 22:59 PCO (Rec: 08/07/17 22:59 PCO [id number]) Blood Glucose Finger Stick Blood Glucose (70-120) 155 Subcutaneous Administrations Document 08/07/17 22:59 PCO (Rec: 08/07/17 22:59 PCO [id number]) Injection Site MAR Injection Site Left Arm Charges for Administration # of Subcutaneous Administrations 1 Pneumococcal Polyvalent Vaccine (Pneumovax 23 Vaccine) 0.5 ml IM .ONCE ONE Stop: 08/07/17 21:58 Potassium Chloride (K-Dur 20 Meq Er Tab) 20 meq PO STAT STA Stop: 08/07/17 15:44 Last Admin: 08/07/17 16:05 Dose: 20 meq - PA / CORN DETASSELER / Resident Statement MD/DO has reviewed & agrees with the documentation as recorded. MD/DO has examined the patient and agrees with the treatment plan. Disposition/Present on Arrival - Present on Arrival Any Indicators Present on Arrival: No History of DVT/PE: No History of Uncontrolled Diabetes: No Urinary Catheter: No History of Decub. Ulcer: No History Surgical Site Infection Following: None - Disposition Have Diagnosis and Disposition been Completed?: Yes Disposition Time: 15:34 Patient Plan: Admission - Disposition Diagnosis: Cellulitis Disposition: HOSPITALIZED Patient Problems: Current Active Problems Problem Status Onset Cellulitis Acute Condition: GUARDED
[2017-08-07 15:06] LABS: VENOUS BLOOD GAS BASE EXCESS 6.1 mmol/L (0.0-2.0); VENOUS BLOOD GAS PO2 40 mm/Hg (30-55); VENOUS BLOOD PH 7.35 (7.32-7.43)
[2017-08-07 15:09] LABS: BASO # 0.01 K/mm3 (0.0-2.0); BASO % 0.2 % (0.0-3.0); EOS # 0.1 (0.0-0.7); EOS % 1.4 % (1.5-5.0); GRAN # 3.87 (1.4-6.5); GRAN % 61.9 % (50.0-68.0); HEMOGLOBIN 12.7 g/dL (14.0-18.0); LYMPH # 1.6 (1.2-3.4); LYMPH % 26.1 % (22.0-35.0); MEAN CELL VOLUME 78.2 fl (80.0-105.0); MEAN CORPUSCULAR HEMOGLOBIN 28.2 pg (25.0-35.0); MEAN CORPUSCULAR HGB CONC 36.1 g/dl (31.0-37.0); MEAN PLATELET VOLUME 10.1 fl (7.0-11.0); MONO # 0.7 (0.1-0.6); MONO % 10.4 % (1.0-6.0); RBC 4.5 10^6/uL (3.5-6.1); RED CELL DISTRIBUTION WIDTH 15.2 % (11.5-14.5); WHITE BLOOD COUNT 6.3 10^3/ul (4.5-11.0)
[2017-08-07 15:17] LABS: INR 1.05 (0.93-1.08); PARTIAL THROMBOPLASTIN TIME 37.3 Seconds (25.1-36.5)
[2017-08-07 15:18] LABS: ALBUMIN 3.8 g/dL (3.0-4.8); CALCIUM 9.6 mg/dL (8.4-10.5)
[2017-08-07] MEDS ORDERED: cefTRIAXone 1 gm 1 GM/100 ML BAG IVPB STA (15:24)
[2017-08-07] MEDS ORDERED: Potassium Chloride 20 mEq ER Tab PO STA (15:43)
--- NOTE | 2017-08-07 15:47 | RAD ---
HISTORY: admission COMPARISON: No prior. FINDINGS: LUNGS: No active pulmonary disease. PLEURA: No significant pleural effusion identified, no pneumothorax apparent. CARDIOVASCULAR: Mild cardiomegaly OSSEOUS STRUCTURES: No significant abnormalities. VISUALIZED UPPER ABDOMEN: Normal. OTHER FINDINGS: None. IMPRESSION: No active disease.
--- NOTE | 2017-08-07 18:11 | CARD ---
APPROVED REPORT EKG Measurement Heart [id number] <Conclusion> Sinus rhythm with premature atrial complexes with aberrant conduction Possible Left atrial enlargement Prolonged QT Abnormal ECG
--- NOTE | 2017-08-07 19:34 | CP.PCM.CON ---
History of Present Illness - History of Present Illness History of Present Illness: General Surgery Consult Note: Dr. Wills 52M with a PMH of HTN,DM presented to [facility] [place] after visiting his PMD who advised him to come to the emergency room for his left lower extremity wound. As per patient, he has had this wound for years. As of 2 days ago patient reported subjective fever/chills. At time of examination patient denied fever/ chills, chest pain, SOB, nausea/vomiting, diarrhea. PMH: as stated above PSH: denies Allergies: NKDA Soc Hx: Drinks EtOH socially, denies illicit drug use, denies smoking Review of Systems - Review of Systems Review of Systems: 12pt ROS unremarkable, except as states in HPI Past Patient History - Infectious Disease Hx of Infectious Diseases: None - Past Social History Smoking Status: Unknown If Ever Smoked - CARDIAC Hx Hypertension: Yes - PULMONARY Hx Respiratory Disorders: Yes Hx Bronchitis: Yes - NEUROLOGICAL Hx Neurological Disorder: No - HEENT Hx HEENT Problems: Yes (LEFT EYE CORNEAL TRANSPLANT) - RENAL Hx Chronic Kidney Disease: No - ENDOCRINE/METABOLIC Hx Diabetes Mellitus Type 2: Yes - HEMATOLOGICAL/ONCOLOGICAL Hx Blood Disorders: No - INTEGUMENTARY Hx Dermatological Problems: Yes Other/Comment: LEFT LEG CHRONIC LEG WOUND - MUSCULOSKELETAL/RHEUMATOLOGICAL Hx Musculoskeletal Disorders: Yes (LEFT ANKLE SX) Hx Falls: No - GASTROINTESTINAL Hx Gastrointestinal Disorders: No - GENITOURINARY/GYNECOLOGICAL Hx Genitourinary Disorders: No - PSYCHIATRIC Hx Psychophysiologic Disorder: No Hx Substance Use: No - SURGICAL HISTORY Hx Orthopedic Surgery: Yes - ANESTHESIA Hx Anesthesia Reactions: No Meds Allergies/Adverse Reactions: Allergies Allergy/AdvReac Type Severity Reaction Status Date / Time No Known Allergies Allergy Verified 08/07/17 13:43 - Medications Medications: Current Medications Amlodipine Besylate (Norvasc) 5 mg PO DAILY [facility] Insulin Human Regular (Humulin R High) 0 units SC ACHS [facility] PRN Reason: Protocol Insulin Lispro Protam/Lispro Human (Humalog Mix 75/25) 60 units SC AMHS [facility] Physical Exam - Constitutional Appears: Non-toxic, No Acute Distress - Head Exam Head Exam: NORMOCEPHALIC - Eye Exam Eye Exam: Normal appearance - ENT Exam ENT Exam: Mucous Membranes Moist - Respiratory Exam Respiratory Exam: NORMAL BREATHING PATTERN - Cardiovascular Exam Cardiovascular Exam: +S1, +S2 - GI/Abdominal Exam GI & Abdominal Exam: Soft - Extremities Exam Extremities exam: Negative for: calf tenderness Additional comments: no crepitus no fluctuant sites no evidence of purulent discharge - Neurological Exam Neurological exam: Alert, Oriented x3 - Psychiatric Exam Psychiatric exam: Normal Mood Results - Vital Signs Recent Vital Signs: Last Vital Signs Temp 97.9 F 08/07/17 18:25 Pulse 92 H 08/07/17 18:50 Resp 18 08/07/17 18:25 BP 200/99 H 08/07/17 18:50 Pulse Ox 99 08/07/17 18:25 - Labs Result Diagrams: 08/07/17 14:30 08/07/17 14:30 Labs: Laboratory Results - last 24 hr 08/07/17 18:27 POC Glucose (mg/dL) 155 H Assessment & Plan - Assessment and Plan (Free Text) Assessment: 52M with chronic left lower extremity wound Plan: -local wound care -apply medihoney to affected site -compression stockings -Further recs per Dr. Johann Buchanan PGY2
[2017-08-07] MEDS: Meropenem IV 1 gm in NS 50 ML IVPB SCH (21:18)
[2017-08-07] MEDS: Linezolid 600 mg in D5W 300 ml 600 MG/300 ML BAG IVPB SCH (21:20)
[2017-08-07 21:57] VITALS: BMI 53.8
[2017-08-07] MEDS ORDERED: Influenza Vaccine 60 mcg/0.5 mL SYR (4YR UP) IM ONE (21:57)
[2017-08-07] MEDS ORDERED: Pneumococcal 23-Valent Vaccine IM ONE (21:57)
[2017-08-07] MEDS ORDERED: Insulin Lispro (humaLOG) MIX 75/25(10 ml) SC SCH (22:00)
[2017-08-07] MEDS: Insulin Reg-HIGH-Coverage SC SCH (22:59)
[2017-08-08] MEDS: Insulin Reg-HIGH-Coverage SC SCH ×3 (07:54→17:25)
--- NOTE | 2017-08-08 09:48 | CP.PCM.PN ---
Subjective - Date & Time of Evaluation Date of Evaluation: 08/08/17 Time of Evaluation: 09:46 - Subjective Subjective: Surgery Progress Note: Patient seen and examined at bedside. Pt's blood sugar low overnight, 38, given orange juice. Denies fever, chills, nausea, vomiting, diarrhea, wound drainage. Objective - Vital Signs/Intake and Output Vital Signs (last 24 hours): Temp Pulse Resp BP Pulse Ox 97.8 F 87 18 166/97 H 99 08/08/17 08:16 08/08/17 08:16 08/08/17 08:16 08/08/17 08:16 08/08/17 08:16 Intake and Output: 08/08/17 08/08/17 06:59 18:59 Intake Total 840 Balance 840 - Medications Medications: Current Medications Amlodipine Besylate (Norvasc) 5 mg PO DAILY [facility] Last Admin: 08/08/17 06:42 Dose: 5 mg Calcitriol (Rocaltrol) 0.5 mcg PO DAILY [facility] Doxazosin Mesylate (Cardura) 2 mg PO DAILY [facility] Heparin Sodium (Porcine) (Heparin) 5,000 units SC Q8 [facility] PRN Reason: Protocol Last Admin: 08/08/17 06:13 Dose: 5,000 units Home Med (Home Med) 1 unit PO DAILY [facility] Meropenem (Merrem Iv 1 Gm Premix) 50 mls @ 100 mls/hr IVPB Q12 [facility] PRN Reason: Protocol Stop: 08/16/17 22:01 Last Admin: 08/07/17 21:18 Dose: 100 mls/hr Linezolid (Zyvox 600mg/300ml D5w) 600 mg in 300 mls @ 200 mls/hr IVPB Q12 [facility] PRN Reason: Protocol Stop: 08/16/17 22:01 Last Admin: 08/07/17 21:20 Dose: 200 mls/hr Insulin Human Regular (Humulin R High) 0 units SC ACHS [facility] PRN Reason: Protocol Last Admin: 08/08/17 07:54 Dose: Not Given Insulin Lispro Protam/Lispro Human (Humalog Mix 75/25) 30 units SC AMHS [facility] Nifedipine (Procardia) 60 mg PO TID [facility] - Labs Labs: PT 12.0 SECONDS (9.4-12.5) 08/07/17 14:30 INR 1.05 (0.93-1.08) 08/07/17 14:30 APTT 37.3 Seconds (25.1-36.5) H 08/07/17 14:30 - Constitutional Appears: Non-toxic, No Acute Distress - Head Exam Head Exam: ATRAUMATIC, NORMOCEPHALIC - Eye Exam Eye Exam: EOMI, PERRL Pupil Exam: PERRL - Respiratory Exam Respiratory Exam: Clear to Ausculation Bilateral, NORMAL BREATHING PATTERN. absent: Rhonchi, Wheezes - Cardiovascular Exam Cardiovascular Exam: +S1, +S2. absent: Murmur - GI/Abdominal Exam GI & Abdominal Exam: Soft, Normal Bowel Sounds. absent: Tenderness, Mass - Extremities Exam Extremities Exam: absent: Calf Tenderness Additional comments: LLE wound noted: no crepitus, fluctuance or discharge appreciated. - Neurological Exam Neurological Exam: Alert, Awake, Oriented x3 - Psychiatric Exam Psychiatric exam: Normal Affect, Normal Mood - Skin Skin Exam: Dry, Normal Color, Warm Assessment and Plan - Assessment and Plan (Free Text) Assessment: 52M with chronic left lower extremity wound: -local wound care -apply medihoney to affected site -compression stockings -Will discuss with Dr. Wills
[2017-08-08] MEDS: AZILSARTAN 80 MG PO SCH (09:54)
[2017-08-08] MEDS: Insulin Lispro (humaLOG) MIX 75/25(10 ml) SC SCH ×2 (09:55→22:19)
[2017-08-08] MEDS ORDERED: CHLORTHALIDONE PO SCH (10:00)
[2017-08-08] MEDS ORDERED: AZILSARTAN MED PO SCH (10:00)
[2017-08-08] MEDS ORDERED: [UNRECOGNIZED DRUG - OTHER] PO SCH (10:00)
[2017-08-08] MEDS ORDERED: Enoxaparin 40 mg Syringe SC SCH (10:00)
[2017-08-08] MEDS: Linezolid 600 mg in D5W 300 ml 600 MG/300 ML BAG IVPB SCH ×2 (10:06→22:21)
[2017-08-08] MEDS: Meropenem IV 1 gm in NS 50 ML IVPB SCH (10:07)
[2017-08-08] MEDS ORDERED: Vancomycin 1.5 GM in Sodium Chloride 0.9% 500 ML IVPB ONE (15:21)
--- NOTE | 2017-08-08 15:28 | CP.PCM.CON ---
History of Present Illness - History of Present Illness History of Present Illness: 52 year old male with PMH of HTN, DM, morbid obesity with BMI 54, chronic wound on his left leg came in to [facility] [place] complaining of increasing pain on his left leg associated with some oozing from his chronic wound, which is honey colored. He states that he had developed some fever and chills 2 days ago which has no resolved. He denies cough or colds, no sore throat, no nausea or vomiting, no chest pain, no SOB, no dysphagia, no headache or dizziness, no diarrhea, no abdominal pain, no dysuria. He states that he has had the ulcer on his anterior left leg for more than 10 years now, has been seeing a Soap Maker for this. He denies soaking his legs in water, no walking barefoot, no animal contacts. Infectious Diseases consult is requested to further evaluate and manage. Review of Systems - Review of Systems All systems: reviewed and no additional remarkable complaints except (as per HPI ) Past Patient History - Infectious Disease Hx of Infectious Diseases: None - Past Social History Smoking Status: Never Smoked - CARDIAC Hx Hypercholesterolemia: Yes Hx Hypertension: Yes Hx Peripheral Edema: Yes (rle +2 pitting edema, lle +3 pitting edema) - PULMONARY Hx Respiratory Disorders: Yes Hx Bronchitis: Yes (as a child) - NEUROLOGICAL Hx Neurological Disorder: No - HEENT Hx HEENT Problems: Yes (LEFT EYE CORNEAL TRANSPLANT) Other/Comment: eyeglasses - RENAL Hx Chronic Kidney Disease: No Other/Comment: pt sees dr rome keeping an eye out on pt's kidney function - ENDOCRINE/METABOLIC Hx Diabetes Mellitus Type 2: Yes - HEMATOLOGICAL/ONCOLOGICAL Hx Blood Disorders: No - INTEGUMENTARY Hx Dermatological Problems: Yes Other/Comment: LEFT LEG CHRONIC LEG [id number] wound bed pink with 2 areas of deep red skin and 1 area of bright red skin surrounded by brown skin, left heel horizontal wound brown and dry, that drains sometimes when legs are edematous, lle deep brown skin discolorations, rle brown skin discolorations, thick toenails, foul smell to lle wound - MUSCULOSKELETAL/RHEUMATOLOGICAL Hx Falls: No - GASTROINTESTINAL Hx Gastrointestinal Disorders: Yes (obese) Hx Gastroesophageal Reflux: Yes - GENITOURINARY/GYNECOLOGICAL Hx Genitourinary Disorders: No - PSYCHIATRIC Hx Substance Use: No - SURGICAL HISTORY Hx Orthopedic Surgery: Yes Other/Comment: left heel ft drained 7 yrs ago or longer, horizontal dry wound to inner left heel - ANESTHESIA Hx Anesthesia Reactions: No Meds Allergies/Adverse Reactions: Allergies Allergy/AdvReac Type Severity Reaction Status Date / Time No Known Allergies Allergy Verified 08/07/17 13:43 - Medications Medications: Current Medications Amlodipine Besylate (Norvasc) 5 mg PO DAILY [facility] Last Admin: 08/08/17 06:42 Dose: 5 mg Heparin Sodium (Porcine) (Heparin) 5,000 units SC Q8 [facility] PRN Reason: Protocol Last Admin: 08/08/17 06:13 Dose: 5,000 units Meropenem (Merrem Iv 1 Gm Premix) 50 mls @ 100 mls/hr IVPB Q12 [facility] PRN Reason: Protocol Stop: 08/16/17 22:01 Last Admin: 08/07/17 21:18 Dose: 100 mls/hr Linezolid (Zyvox 600mg/300ml D5w) 600 mg in 300 mls @ 200 mls/hr IVPB Q12 [facility] PRN Reason: Protocol Stop: 08/16/17 22:01 Last Admin: 08/07/17 21:20 Dose: 200 mls/hr Insulin Human Regular (Humulin R High) 0 units SC ACHS [facility] PRN Reason: Protocol Last Admin: 08/08/17 07:54 Dose: Not Given Insulin Lispro Protam/Lispro Human (Humalog Mix 75/25) 60 units SC AMHS [facility] Last Admin: 08/07/17 22:59 Dose: 60 units Physical Exam - Constitutional Appears: Non-toxic - Head Exam Head Exam: NORMAL INSPECTION - ENT Exam ENT Exam: Mucous Membranes Moist - Neck Exam Neck exam: Negative for: Lymphadenopathy, Meningismus - Respiratory Exam Respiratory Exam: Decreased Breath Sounds. absent: Rales - Cardiovascular Exam Cardiovascular Exam: +S1, +S2 - GI/Abdominal Exam GI & Abdominal Exam: Soft. absent: Tenderness - Extremities Exam Additional comments: both legs with edema, left anterior leg with chronic leg wound with some honey- colored oozing Results - Vital Signs Recent Vital Signs: Last Vital Signs Temp 97.8 F 08/08/17 08:16 Pulse 87 08/08/17 08:16 Resp 18 08/08/17 08:16 BP 166/97 H 08/08/17 08:16 Pulse Ox 99 08/08/17 08:16 - Labs Result Diagrams: 08/07/17 14:30 08/07/17 14:30 Labs: Laboratory Results - last 24 hr 08/07/17 08/07/17 08/08/17 18:27 22:00 02:46 POC Glucose (mg/dL) 155 H 203 H 39 L 08/08/17 08/08/17 03:52 06:16 POC Glucose (mg/dL) 69 72 Assessment & Plan - Assessment and Plan (Free Text) Plan: Assessment 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
[2017-08-08] MEDS: Silver Sulfadiazine 1% Cream (25 gm) TP SCH (17:25)
--- NOTE | 2017-08-09 06:05 | HP ---
CHIEF COMPLAINT AND HISTORY OF PRESENT ILLNESS: This is a 52-year-old male who is coming into the hospital with a left leg ulcer. The patient states that he has been having worsening pain. He states that there was discharge that was coming, it was light yellowish in color. He states he was feeling fevers and chills about 2 days ago prior to coming into the ER. The patient states he has had this chronic wound in the past, but it has become worse, he had seen Dr. Wills for his chronic wound. He denies any chest pain. No shortness of breath. No nausea. No vomiting. No abdominal pain. No current fevers or chills. He has no dysuria or frequency. No cough or congestion. No headaches or dizziness. No dysarthria or dysphagia. All other review of symptoms are within normal limits except what was mentioned. ALLERGIES: NO KNOWN DRUG ALLERGIES. HOME MEDICATIONS: 1. NovoLog 70/30, 40 units. 2. Doxazosin. 3. Azilsartan. 4. Amlodipine. 5. Nifedipine. 6. Calcitriol. SOCIAL HISTORY: Patient drinks socially. He denies smoking or drug use. PAST MEDICAL HISTORY: Diabetes type 2 and hypertension. FAMILY HISTORY: Noncontributory. PHYSICAL EXAMINATION: VITAL SIGNS: Temperature is 98.1, pulse of 88, blood pressure is 162/86, repeat blood pressure is 148/71, respirations 20. Height is 5 feet 10 inches. Weight 375 pounds. BMI is 53.8. GENERAL: The patient lying in bed, uncomfortable, and in no acute distress. HEENT: Atraumatic and normocephalic. Anicteric sclerae. Moist mucosa. Gurley conjunctivae. No oral lesions. NECK: No JVD, anterior and posterior adenopathy, thyromegaly, or bruits. CARDIOVASCULAR: S1 and S2 regular. No murmur, rubs, or gallop. LUNGS: Clear to auscultation bilaterally. No wheezes, rales, or rhonchi. ABDOMEN: Bowel sounds are positive. Soft, nontender and nondistended. No hepatosplenomegaly. No rebound and no guarding. EXTREMITIES: In the left side, there is an ulcer that is chronic and healed, but there is a small area in that ulcer that shows some discharge. There is pain on palpation. NEUROLOGIC: No facial asymmetry. Tongue is midline. No uvula deviation. Power is 5/5 upper extremity and lower extremity. Sensation intact in upper extremity and lower extremity. PSYCHIATRIC: He is awake, alert and oriented x3. No anxiety or depression. He has normal affect. GENITOURINARY: No CVA tenderness. VASCULAR: 2+ pulses in the carotid pulses and pedal pulses. SKIN: No erythema or nodules. SPINE: Shows normal curvature. LABORATORY DATA: Blood cultures are pending. Wound culture shows group G strep. Labs, white count of 6.3, hemoglobin 12.7, ESR is 46. Chemistry shows sodium 140, potassium 3.4, creatinine is 1.6. His INR is 1.05. He had a chest x-ray done shows no active disease. EKG shows sinus rhythm at 78, possible left atrial enlargement, QTc is 481. ASSESSMENT: 1. Left leg ulcer. 2. Hypertension. 3. Diabetes type 2. 4. Obese. 5. Chronic kidney disease stage III. 6. Hypokalemia. PLAN: The patient is going to be admitted to the hospital. He has left side open wound and it is oozing. He is having worsening pain. He is going to be admitted to the hospital for further evaluation and management. He has been placed on heparin for DVT prophylaxis. The patient is on insulin. We will decrease his dosage of insulin to 30 units twice a day because his fingersticks showed that he was hypoglycemic early this morning. He is going to be on Norvasc for his hypertension. He is on Procardia as his home medication as well for hypertension. He has been placed on linezolid by Infectious Disease. He is going to continue his calcitriol. He is on carbohydrate consistent diet for his diabetes. He is also on doxazosin for his hypertension. We will await further input from the consultants. He was seen by Dr. Wills as well. Srikanth Freeman MD
[2017-08-09] MEDS: Insulin Reg-HIGH-Coverage SC SCH ×5 (08:23→21:43)
[2017-08-09] MEDS: AZILSARTAN 80 MG PO SCH (11:24)
[2017-08-09] MEDS: Insulin Lispro (humaLOG) MIX 75/25(10 ml) SC SCH ×2 (11:25→22:00)
[2017-08-09] MEDS: Silver Sulfadiazine 1% Cream (25 gm) TP SCH ×2 (11:43→18:12)
[2017-08-09] MEDS: Linezolid 600 mg in D5W 300 ml 600 MG/300 ML BAG IVPB SCH ×2 (11:43→21:43)
--- NOTE | 2017-08-09 13:35 | CP.PCM.PN ---
Subjective - Date & Time of Evaluation Date of Evaluation: 08/09/17 Time of Evaluation: 13:32 - Subjective Subjective: Surgery Pt seen and examined with attending. No acute events. Dressing in place. Swelling improved. Denies Fevers. pain controlled. Objective - Vital Signs/Intake and Output Vital Signs (last 24 hours): Temp Pulse Resp BP Pulse Ox 98.8 F 90 18 164/99 H 94 L 08/09/17 08:00 08/09/17 08:00 08/09/17 08:00 08/09/17 08:00 08/09/17 08:00 Intake and Output: 08/09/17 08/09/17 06:59 18:59 Intake Total 660 Balance 660 - Medications Medications: Current Medications Amlodipine Besylate (Norvasc) 5 mg PO DAILY [facility] Last Admin: 08/09/17 11:39 Dose: 5 mg Calcitriol (Rocaltrol) 0.5 mcg PO DAILY [facility] Last Admin: 08/09/17 11:42 Dose: 0.5 mcg Doxazosin Mesylate (Cardura) 2 mg PO DAILY [facility] Last Admin: 08/09/17 11:24 Dose: 2 mg Heparin Sodium (Porcine) (Heparin) 5,000 units SC Q8 [facility] PRN Reason: Protocol Last Admin: 08/09/17 08:35 Dose: 5,000 units Home Med (Home Med) 1 unit PO DAILY [facility] Last Admin: 08/09/17 11:24 Dose: 1 unit Linezolid (Zyvox 600mg/300ml D5w) 600 mg in 300 mls @ 200 mls/hr IVPB Q12 [facility] PRN Reason: Protocol Stop: 08/16/17 22:01 Last Admin: 08/09/17 11:43 Dose: 200 mls/hr Insulin Human Regular (Humulin R High) 0 units SC ACHS [facility] PRN Reason: Protocol Last Admin: 08/09/17 11:39 Dose: 7 units Insulin Lispro Protam/Lispro Human (Humalog Mix 75/25) 30 units SC AMHS [facility] Last Admin: 08/09/17 11:25 Dose: 30 units Nifedipine (Procardia) 60 mg PO TID [facility] Last Admin: 08/09/17 11:40 Dose: 60 mg Silver Sulfadiazine (Silvadene 1% 25 Gm) 0 gm TP BID [facility] Last Admin: 08/09/17 11:43 Dose: 25 gm - Labs Labs: PT 12.0 SECONDS (9.4-12.5) 08/07/17 14:30 INR 1.05 (0.93-1.08) 08/07/17 14:30 APTT 37.3 Seconds (25.1-36.5) H 08/07/17 14:30 - Constitutional Appears: No Acute Distress - Head Exam Head Exam: ATRAUMATIC, NORMAL INSPECTION, NORMOCEPHALIC - Eye Exam Eye Exam: EOMI, Normal appearance, PERRL Pupil Exam: NORMAL ACCOMODATION, PERRL - ENT Exam ENT Exam: Mucous Membranes Moist, Normal Exam - Neck Exam Neck Exam: Full ROM, Normal Inspection. absent: Lymphadenopathy - Respiratory Exam Respiratory Exam: Clear to Ausculation Bilateral, NORMAL BREATHING PATTERN - Cardiovascular Exam Cardiovascular Exam: REGULAR RHYTHM, +S1, +S2. absent: Murmur - GI/Abdominal Exam GI & Abdominal Exam: Soft, Normal Bowel Sounds. absent: Tenderness - Extremities Exam Extremities Exam: Full ROM, Pedal Edema. absent: Normal Inspection Additional comments: L leg wrapped with saray wrap. Pedal swelling. - Back Exam Back Exam: NORMAL INSPECTION - Neurological Exam Neurological Exam: Alert, Awake, CN II-XII Intact, Normal Gait, Oriented x3 - Psychiatric Exam Psychiatric exam: Normal Affect, Normal Mood - Skin Skin Exam: Dry, Erythema, Normal Color, Warm Assessment and Plan - Assessment and Plan (Free Text) Assessment: 52M with chronic left lower extremity wound: wound cx: Group G strep -ABX per ID -local wound care with silvadene and saray wrap -compression stockings -Ok to DC for surgical stand point. Seen and case discussed with Dr. Wills
[2017-08-09 15:57] VITALS: RESP 20
--- NOTE | 2017-08-09 21:51 | PN ---
DATE: 08/09/2017 SUBJECTIVE: Patient has no complaints of any headaches or dizziness. He states he is feeling well. PHYSICAL EXAMINATION: VITAL SIGNS: Temperature is 98, pulse of 86, blood pressure is 139/79, respirations 20. GENERAL: The patient is lying in bed, flat, comfortable. HEENT: No oral lesion. Anicteric sclerae. Moist mucosa. NECK: No JVD, adenopathy, or thyromegaly. CARDIOVASCULAR: S1 and S2, regular. No murmurs, rubs, or gallops. LUNGS: Clear to auscultation bilaterally. No wheeze, rales, or rhonchi. ABDOMEN: Bowel sounds are positive, soft, nontender, and nondistended. EXTREMITIES: No cyanosis, clubbing, or edema. In the left leg, there is a small area of small wound in the left side. ASSESSMENT: 1. Left leg ulcer. 2. Hypertension. 3. Diabetes type 2. 4. Obesity. 5. Chronic kidney disease stage 3. 6. Hypokalemia. PLAN: The patient is currently on heparin for DVT prophylaxis. He is going to continue with lispro for his diabetes. The patient has had fingersticks that have been controlled. He is on nifedipine for his hypertension. He is on calcitriol; this will be continued. He is on linezolid. He is on carbohydrate-consistent diet. He is on doxazosin for his hypertension. He is being followed by Wound Care with Dr. Wills. He is also being followed by Dr. Mora that I spoke with this morning. Srikanth Freeman MD
--- NOTE | 2017-08-09 22:48 | PN ---
DATE: 08/09/2017 SUBJECTIVE: The patient is in bed, in no acute distress, who was seen earlier this morning in room 578, bed 2. PHYSICAL EXAMINATION: VITAL SIGNS: Temperature is 98, blood pressure is 139/70, respiratory rate 20, heart rate of 86. HEENT: Unremarkable. NECK: Supple. LUNGS: Have decreased breath sounds. HEART: Normal S1, S2. ABDOMEN: Soft. LABORATORY EXAMINATION: Reveals the patient's white count is 6.3, hemoglobin of 12, platelets of 238. Coagulation is noted. Chemistries reveal a BUN of 24, creatinine of 1.6. The left leg cultures are group G Streptococcus. The blood cultures are no growth. Review of orders reveals the patient to be on linezolid. Dr. Nj's progress note is appreciated. ASSESSMENT AND PLAN: This is a 52-year-old morbidly obese male with a BMI of 54, chronic left wound infection with chronic stasis, diabetes mellitus, hypertension with a group G Streptococcus left anterior cellulitis of the left leg. Currently on Zyvox, may be able to switch to p.o. Augmentin. We will discuss with Dr. Freeman. Yury Mora MD
[2017-08-10 00:43] VITALS: O2SAT 98
--- NOTE | 2017-08-10 00:51 | PN ---
DATE: SUBJECTIVE: Gurmeet De Dios is seen on the floor. The swelling in the leg is markedly improved with the JOAN bandage wrapped. We will continue for now without surgical intervention. Shiva Wills MD
[2017-08-10 06:38] VITALS: BP 172/93; PULSE 72
--- NOTE | 2017-08-10 08:02 | CP.PCM.PN ---
Subjective - Date & Time of Evaluation Date of Evaluation: 08/10/17 Time of Evaluation: 06:30 - Subjective Subjective: Surgery- Dr. Wills Pt seen and examined this AM. No acute events. Dressing in place, C/D/I. Swelling improved. Pain controlled. Tolerating diet. Denies Fevers, chills, chest pain, shortness of breath Objective - Vital Signs/Intake and Output Vital Signs (last 24 hours): Temp Pulse Resp BP Pulse Ox 98.1 F 72 20 172/93 H 98 08/09/17 22:00 08/10/17 06:35 08/09/17 22:00 08/10/17 06:35 08/09/17 22:00 Intake and Output: 08/10/17 08/10/17 06:59 18:59 Intake Total 1380 Balance 1380 - Medications Medications: Current Medications Amlodipine Besylate (Norvasc) 5 mg PO DAILY [facility] Last Admin: 08/10/17 06:35 Dose: 5 mg Calcitriol (Rocaltrol) 0.5 mcg PO DAILY [facility] Last Admin: 08/09/17 11:42 Dose: 0.5 mcg Doxazosin Mesylate (Cardura) 2 mg PO DAILY [facility] Last Admin: 08/09/17 11:24 Dose: 2 mg Heparin Sodium (Porcine) (Heparin) 5,000 units SC Q8 [facility] PRN Reason: Protocol Last Admin: 08/10/17 05:34 Dose: 5,000 units Home Med (Home Med) 1 unit PO DAILY [facility] Last Admin: 08/09/17 11:24 Dose: 1 unit Linezolid (Zyvox 600mg/300ml D5w) 600 mg in 300 mls @ 200 mls/hr IVPB Q12 [facility] PRN Reason: Protocol Stop: 08/16/17 22:01 Last Admin: 08/09/17 21:43 Dose: 200 mls/hr Insulin Human Regular (Humulin R High) 0 units SC ACHS [facility] PRN Reason: Protocol Last Admin: 08/09/17 21:43 Dose: Not Given Insulin Lispro Protam/Lispro Human (Humalog Mix 75/25) 30 units SC AMHS [facility] Last Admin: 08/09/17 22:00 Dose: Not Given Nifedipine (Procardia) 60 mg PO TID [facility] Last Admin: 08/09/17 18:11 Dose: 60 mg Silver Sulfadiazine (Silvadene 1% 25 Gm) 0 gm TP BID [facility] Last Admin: 08/09/17 18:12 Dose: 25 gm - Labs Labs: PT 12.0 SECONDS (9.4-12.5) 08/07/17 14:30 INR 1.05 (0.93-1.08) 08/07/17 14:30 APTT 37.3 Seconds (25.1-36.5) H 08/07/17 14:30 - Constitutional Appears: Non-toxic, No Acute Distress - Head Exam Head Exam: ATRAUMATIC - Eye Exam Eye Exam: EOMI - ENT Exam ENT Exam: Mucous Membranes Moist - Neck Exam Neck Exam: Full ROM - Respiratory Exam Respiratory Exam: NORMAL BREATHING PATTERN. absent: Accessory Muscle Use, Respiratory Distress - Cardiovascular Exam Cardiovascular Exam: +S1, +S2. absent: Bradycardia, Tachycardia - GI/Abdominal Exam GI & Abdominal Exam: Soft. absent: Distended, Firm, Tenderness - Extremities Exam Extremities Exam: Calf Tenderness (tender to palpation, however significantly improved), Normal Inspection Additional comments: Dressing C/D/I Swelling improved - Neurological Exam Neurological Exam: Alert, Awake, Oriented x3 - Psychiatric Exam Psychiatric exam: Normal Affect - Skin Skin Exam: Intact, Warm Assessment and Plan - Assessment and Plan (Free Text) Assessment: 52M w/ chronic left lower extremity wound wound cx: Group G strep Plan: - ABX per ID- on zyvox - local wound care with silvadene and saray wrap - compression stockings - No acute surgical intervention indicated at this time - Ok to DC for surgical stand point - discussed w/ Dr. Johann Berger PGY1
[2017-08-10] MEDS: Insulin Reg-HIGH-Coverage SC SCH ×2 (08:49→12:55)
[2017-08-10] MEDS: Linezolid 600 mg in D5W 300 ml 600 MG/300 ML BAG IVPB SCH ×2 (09:16→11:22)
[2017-08-10] MEDS: Silver Sulfadiazine 1% Cream (25 gm) TP SCH (09:17)
[2017-08-10] MEDS: AZILSARTAN 80 MG PO SCH (09:17)
[2017-08-10] MEDS: Insulin Lispro (humaLOG) MIX 75/25(10 ml) SC SCH (09:17)
[2017-08-10 10:40] VITALS: TEMP 98.2
--- NOTE | 2017-08-10 14:19 | PN ---
DATE: 08/10/2017 SUBJECTIVE: The patient is in bed, in no acute distress, nontoxic. PHYSICAL EXAMINATION: VITAL SIGNS: Temperature is 98, blood pressure is 170/80, respiratory rate 20, heart rate of 72. HEENT: Unremarkable. NECK: Supple. LUNGS: Decreased breath sounds. HEART: Normal S1, S2. ABDOMEN: Soft, nontender. No organomegaly, no rebound, no guarding. No masses. EXTREMITIES: Examination of the leg reveals the patient's leg is much improved. LABORATORY EXAMINATION: Reveals a white count of 6.3, hemoglobin of 12. ASSESSMENT AND PLAN: This is a 52-year-old morbidly obese male with body mass index of 54, chronic left wound infection, chronic stasis, diabetes mellitus, hypertension, and group G strep left anterior cellulitis of the left leg, on Zyvox, may switch to p.o. Augmentin. We will follow closely with you. Case was discussed with Dr. Freeman. Yury Mora MD
--- NOTE | 2017-08-12 06:05 | DS ---
HISTORY OF PRESENT ILLNESS: This is a 52-year-old male, who had come into the hospital and was found to have left leg ulcer. He was placed on IV antibiotics. His drainage has improved. He was seen by Dr. Wills from Wound Care Service/Surgery and also with Infectious Disease. He has no complaints of any chest pain, no shortness of breath, no headaches. He is going to be discharged home today to follow up as an outpatient. PHYSICAL EXAMINATION: VITAL SIGNS: Temperature is 98.2, pulse of 72, blood pressure 172/93, respirations 20, O2 saturation is 98%. GENERAL: The patient is lying in bed, flat, comfortable. HEENT: No oral lesion. Anicteric sclerae. Moist mucosa. NECK: No JVD, adenopathy, or thyromegaly. CARDIOVASCULAR: S1 and S2, regular. No murmurs, rubs, or gallops. LUNGS: Clear to auscultation bilaterally. No wheeze, rales, or rhonchi. ABDOMEN: Bowel sounds are positive, soft, nontender and nondistended. EXTREMITIES: Left leg ulcer, small area, , decreased drainage, no erythema. ASSESSMENT: 1. Left leg ulcer. 2. Hypertension. 3. Diabetes type 2. 3. Obesity. 4. Chronic kidney disease, stage 3. 5. Hypokalemia. PLAN: The patient is going to be switched over to pedal antibiotics. I did speak with Dr. Mora. The patient was on Zyvox. He is also receiving nifedipine for his hypertension. He is going to continue this medications at home. CONDITION: Stable. ACTIVITIES: Increase as tolerated. Srikanth Freeman MD
== END 2017-08-10 14:30 | disposition home or self-care (01) | DRG 638 ==
LOC: ED 13:27 → ERH 16:02 → 5RSO 18:23
PROVIDERS: ADMIT Internal Medicine Nephrology; ATTEND Internal Medicine Nephrology
DX: E11.622 Type 2 diabetes mellitus with other skin ulcer (principal); L97.929 Non-pressure chronic ulcer of unspecified part of left lower leg with unspecified severity; Z68.43 Body mass index [BMI] 50.0-59.9, adult; L03.116 Cellulitis of left lower limb; I12.9 Hypertensive chronic kidney disease with stage 1 through stage 4 chronic kidney disease, or unspecified chronic kidney disease; E11.22 Type 2 diabetes mellitus with diabetic chronic kidney disease; N18.3 Chronic kidney disease, stage 3 (moderate); E87.6 Hypokalemia; E66.01 Morbid (severe) obesity due to excess calories; E78.00 Pure hypercholesterolemia, unspecified; K21.9 Gastro-esophageal reflux disease without esophagitis; B95.4 Other streptococcus as the cause of diseases classified elsewhere